=== PATIENT | female | born 1935 | race Caucasian/White ===

== ENCOUNTER 2017-09-01 02:39 | Inpatient (IN) | payer MEDICARE, OTHER ==
[2017-09-01] MEDS ORDERED: BISACODYL (EC) 5 MG TAB PO (03:30)
[2017-09-01] MEDS ORDERED: NITROGLYCERIN (SL) 0.4 MG TAB SL (03:30)
[2017-09-01] MEDS ORDERED: NACL 0.9% 3 ML SYG IV (03:30)
[2017-09-01] MEDS ORDERED: DOCUSATE SODIUM 100 MG CAP PO (03:30)
[2017-09-01] MEDS ORDERED: ACETAMINOPHEN 325 MG TAB PO (03:30)
[2017-09-01] MEDS ORDERED: ONDANSETRON 4 MG INJ IV (03:30)
[2017-09-01 03:50] LABS: ADD MAN DIFF? NO
[2017-09-01 04:22] LABS: ALANINE AMINOTRANSFERASE 12 IU/L (13-69); ALBUMIN 3.8 g/dl (3.3-4.9); ALBUMIN/GLOBULIN RATIO 0.88; ALKALINE PHOSPHATASE 69 IU/L (42-121); ANION GAP 14 (8-16); ASPARTATE AMINO TRANSFERASE 23 IU/L (15-46); BILIRUBIN,INDIRECT 0.3 mg/dl (0-1.1); BILIRUBIN,TOTAL 0.3 mg/dl (0.2-1.3); BLOOD UREA NITROGEN 27 mg/dl (7-20); CALCIUM 8.6 mg/dl (8.4-10.2); CARBON DIOXIDE 21 mmol/L (21-31); CHLORIDE 112 mmol/L (97-110); CREATININE 1.27 mg/dl (0.44-1.00); GLUCOSE 94 mg/dl (70-220); MAGNESIUM 1.7 mg/dl (1.7-2.5); SODIUM 143 mmol/L (135-144); TOTAL PROTEIN 8.1 g/dl (6.1-8.1)
[2017-09-01 04:24] LABS: BASOPHILS % 0.5 % (0.0-2.0); EOSINOPHILS # 0.2 10^3/ul (0.0-0.5); EOSINOPHILS % 4.1 % (0.0-7.0); HEMATOCRIT 35.7 % (37.0-47.0); HEMOGLOBIN 11.7 g/dl (12.0-16.0); LYMPHOCYTES # 1.1 10^3/ul (0.8-2.9); LYMPHOCYTES % 19.8 % (15.0-51.0); MEAN CORPUSCULAR HEMOGLOBIN 30.4 pg (29.0-33.0); MEAN CORPUSCULAR HGB CONC 32.8 g/dl (32.0-37.0); MEAN CORPUSCULAR VOLUME 92.7 fl (82.0-101.0); MEAN PLATELET VOLUME 10.3 fl (7.4-10.4); MONOCYTE # 0.7 10^3/ul (0.3-0.9); MONOCYTES % 12.6 % (0.0-11.0); NEUTROPHIL # 3.5 10^3/ul (1.6-7.5); NEUTROPHILS % 62.8 % (39.0-77.0); PLATELET COUNT 210 10^3/UL (140-415); RED BLOOD COUNT 3.85 10^6/ul (4.20-5.40); RED CELL DISTRIBUTION WIDTH 13.9 % (11.5-14.5)
[2017-09-01 04:24] LABS: WHITE BLOOD COUNT 5.6 10^3/ul (4.8-10.8)
[2017-09-01 04:33] LABS: B-TYPE NATRIURETIC PEPTIDE 1500 PG/ML (0-450)
[2017-09-01] MEDS: FUROSEMIDE 20 MG INJ IV ×2 (06:23→17:39)
[2017-09-01] MEDS: HEPARIN 5,000 UNIT/0.5 ML VIAL SC ×3 (06:27→22:08)
[2017-09-01 07:39] LABS: SODIUM,URINE RANDOM 147 mmol/L (30-90)
[2017-09-01 07:43] LABS: ADD UMIC YES; UR ASCORBIC ACID NEGATIVE (NEGATIVE); UR BACTERIA MODERATE /HPF (NONE SEEN); UR BILIRUBIN (Dip) NEGATIVE (NEGATIVE); UR BLOOD (Dip) NEGATIVE (NEGATIVE); UR CLARITY SLIGHTLY CLOUDY (CLEAR); UR COLOR STRAW (YELLOW); UR GLUCOSE (Dip) NEGATIVE (NEGATIVE); UR KETONES (Dip) NEGATIVE (NEGATIVE); UR LEUKOCYTE ESTERASE (Dip) 1+ Leu/ul (NEGATIVE); UR NITRITE (Dip) NEGATIVE (NEGATIVE); UR RBC 1 /HPF (0-5); UR SPECIFIC GRAVITY (Dip) 1.009 (1.003-1.030); UR TOTAL PROTEIN (Dip) NEGATIVE (NEGATIVE); UR UROBILINOGEN (Dip) NEGATIVE (NEGATIVE); UR WBC 70 /HPF (0-5)
[2017-09-01] MEDS: ASPIRIN 81 MG TAB PO (08:13)
[2017-09-01] MEDS: DICLOFENAC SODIUM 1% GEL 100 GM TUBE TP ×3 (08:13→21:17)
[2017-09-01] MEDS: ENALAPRIL 20 MG TAB PO (08:14)
[2017-09-01 08:50] LABS: FREE T3 3.24 pg/ml (2.77-5.27); FREE T4 (FREE THYROXINE) 1.27 ng/dl (0.85-1.93)
[2017-09-01 09:34] LABS: OSMOLALITY,URINE 424 mOsm/kg (250-1200)
[2017-09-01 09:35] LABS: OSMOLALITY 299 mOsm/kg (280-295)
[2017-09-01] MEDS: CEFTRIAXONE 1 GM/50 ML (PMX) 50 ML IVPB (11:24)
[2017-09-01] MEDS: AMLODIPINE 5 MG TAB PO (12:13)
[2017-09-01] MEDS ORDERED: hydrALAzine 20 MG INJ IV (20:30)
[2017-09-01] MEDS: DONEPEZIL 10 MG TAB PO (21:16)
[2017-09-01] MEDS: GABAPENTIN 100 MG CAP PO (21:16)
[2017-09-01] MEDS: ATORVASTATIN 10 MG TAB PO (21:16)
[2017-09-02] MEDS: FUROSEMIDE 20 MG INJ IV (06:49)
[2017-09-02] MEDS: HEPARIN 5,000 UNIT/0.5 ML VIAL SC ×2 (06:55→14:00)
[2017-09-02] MEDS: AMLODIPINE 5 MG TAB PO (08:12)
[2017-09-02] MEDS: ASPIRIN 81 MG TAB PO (08:12)
[2017-09-02] MEDS: DICLOFENAC SODIUM 1% GEL 100 GM TUBE TP ×2 (08:12→15:09)
[2017-09-02 08:17] LABS: CHOL/HDL RATIO 3.3 RATIO; HDL CHOLESTEROL 40 mg/dl (33-92); LDL CHOLESTEROL,CALCULATED 63 mg/dl; TRIGLYCERIDES 155 mg/dl (0-149)
[2017-09-02 08:17] LABS: CHOLESTEROL 134 mg/dl (100-200)
== END 2017-09-02 15:30 | disposition home or self-care (01) | DRG 291 ==
LOC: TEL 02:39
PROVIDERS: Internal Medicine
DX: I13.0 Hypertensive heart and chronic kidney disease with heart failure and stage 1 through stage 4 chronic kidney disease, or unspecified chronic kidney disease (principal); I50.41 Acute combined systolic (congestive) and diastolic (congestive) heart failure; N39.0 Urinary tract infection, site not specified; N17.9 Acute kidney failure, unspecified; E11.9 Type 2 diabetes mellitus without complications; N18.9 Chronic kidney disease, unspecified; E11.22 Type 2 diabetes mellitus with diabetic chronic kidney disease; F03.90 Unspecified dementia, unspecified severity, without behavioral disturbance, psychotic disturbance, mood disturbance, and anxiety; E78.5 Hyperlipidemia, unspecified
CPT/HCPCS: 71045; 80053; 80061; 81001; 83036; 83735; 83880; 83930; 83935; 84300; 84439; 84443; 84481; 85025; 87086; 93306

== ENCOUNTER 2017-09-21 17:17 | Inpatient (IN) | payer MEDICARE, OTHER ==
[2017-09-21] MEDS ORDERED: MAGNESIUM HYDROXIDE 30ML CUP PO (19:00)
[2017-09-21] MEDS ORDERED: ONDANSETRON 4 MG INJ IV (19:00)
[2017-09-21] MEDS ORDERED: hydrALAzine 20 MG INJ IV (19:00)
[2017-09-21] MEDS ORDERED: ALBUTEROL/IPRATROPIUM (NEB) 3 ML AMP HHN (19:00)
[2017-09-21] MEDS ORDERED: NA PHOSPHATE/BIPHOS 133 ML ENEMA PR (19:00)
[2017-09-21] MEDS ORDERED: HYDROCODONE/APAP (5/325) TAB PO (19:00)
[2017-09-21] MEDS ORDERED: NACL 0.9% 3 ML SYG IV (19:00)
[2017-09-21] MEDS ORDERED: NITROGLYCERIN (SL) 0.4 MG TAB SL (19:00)
[2017-09-21] MEDS ORDERED: LORAZEPAM 2 MG INJ IV (19:00)
[2017-09-21] MEDS ORDERED: morphine 2 MG INJ IV (19:00)
[2017-09-21] MEDS ORDERED: DOCUSATE SODIUM 100 MG CAP PO (19:00)
[2017-09-21 20:15] LABS: FREE T4 (FREE THYROXINE) 1.23 ng/dl (0.85-1.93)
[2017-09-21] MEDS: SOD CHLORIDE 0.45% 1,000 ML IV (21:51)
[2017-09-21] MEDS: CEFTRIAXONE 1 GM/50 ML (PMX) 50 ML IVPB (22:02)
[2017-09-21] MEDS: GABAPENTIN 100 MG CAP PO (22:03)
[2017-09-21] MEDS: CALCIUM/VITAMIN D (500/200) TAB PO (22:03)
[2017-09-21] MEDS: HEPARIN 5,000 UNIT/0.5 ML VIAL SC (22:09)
[2017-09-21] MEDS: DICLOFENAC SODIUM 1% GEL 100 GM TUBE TP (23:00)
[2017-09-22] MEDS: ACETAMINOPHEN 325 MG TAB PO ×2 (00:50→17:45)
[2017-09-22] MEDS: PANTOPRAZOLE (EC) 40 MG TAB PO (06:56)
[2017-09-22 08:43] LABS: ADD MAN DIFF? NO
[2017-09-22 08:45] LABS: BASOPHILS % 0.4 % (0.0-2.0); EOSINOPHILS # 0.1 10^3/ul (0.0-0.5); EOSINOPHILS % 1.1 % (0.0-7.0); HEMATOCRIT 34.6 % (37.0-47.0); LYMPHOCYTES # 0.7 10^3/ul (0.8-2.9); LYMPHOCYTES % 15.6 % (15.0-51.0); MEAN CORPUSCULAR HGB CONC 31.8 g/dl (32.0-37.0); MEAN CORPUSCULAR VOLUME 94.3 fl (82.0-101.0); MEAN PLATELET VOLUME 10.1 fl (7.4-10.4); MONOCYTE # 0.6 10^3/ul (0.3-0.9); MONOCYTES % 12.9 % (0.0-11.0); NEUTROPHIL # 3.3 10^3/ul (1.6-7.5); NEUTROPHILS % 69.8 % (39.0-77.0); PLATELET COUNT 134 10^3/UL (140-415); RED BLOOD COUNT 3.67 10^6/ul (4.20-5.40); RED CELL DISTRIBUTION WIDTH 12.9 % (11.5-14.5)
[2017-09-22 08:45] LABS: WHITE BLOOD COUNT 4.7 10^3/ul (4.8-10.8)
[2017-09-22] MEDS: HEPARIN 5,000 UNIT/0.5 ML VIAL SC ×2 (08:45→20:44)
[2017-09-22] MEDS: DICLOFENAC SODIUM 1% GEL 100 GM TUBE TP ×3 (08:46→20:48)
[2017-09-22] MEDS: PRAVASTATIN 20 MG TAB PO (08:47)
[2017-09-22] MEDS: AMLODIPINE 10 MG TAB PO (08:47)
[2017-09-22] MEDS: DOCUSATE SODIUM 100 MG CAP PO (08:48)
[2017-09-22] MEDS: FERROUS SULFATE (EC) 325 MG TAB PO (08:48)
[2017-09-22] MEDS: ASPIRIN 81 MG TAB PO (08:48)
[2017-09-22] MEDS: FUROSEMIDE 20 MG TAB PO (08:48)
[2017-09-22] MEDS: CALCIUM/VITAMIN D (500/200) TAB PO ×3 (08:49→20:40)
[2017-09-22] MEDS: SOD CHLORIDE 0.45% 1,000 ML IV ×2 (08:55→20:48)
[2017-09-22 09:07] LABS: ANION GAP 16 (8-16); BLOOD UREA NITROGEN 22 mg/dl (7-20); CALCIUM 8.1 mg/dl (8.4-10.2); CHOLESTEROL 117 mg/dl (100-200); GLUCOSE 74 mg/dl (70-220); HDL CHOLESTEROL 38 mg/dl (33-92); LDL CHOLESTEROL,CALCULATED 53 mg/dl; PHOSPHORUS 4.1 mg/dl (2.5-4.9)
[2017-09-22 09:08] LABS: CARBON DIOXIDE 21 mmol/L (21-31); CHLORIDE 107 mmol/L (97-110); CREATININE 0.98 mg/dl (0.44-1.00); POTASSIUM 4.1 mmol/L (3.5-5.1); SODIUM 140 mmol/L (135-144); TRIGLYCERIDES 131 mg/dl (0-149)
[2017-09-22] MEDS: HYDROCORTISONE 1% 28 GM CR TOP (10:00)
[2017-09-22] MEDS: GABAPENTIN 100 MG CAP PO (20:40)
[2017-09-22] MEDS: CEFTRIAXONE 1 GM/50 ML (PMX) 50 ML IVPB (20:41)
[2017-09-23] MEDS: PANTOPRAZOLE (EC) 40 MG TAB PO (05:41)
[2017-09-23 06:32] LABS: ADD MAN DIFF? NO
[2017-09-23 06:38] LABS: WHITE BLOOD COUNT 4.5 10^3/ul (4.8-10.8)
[2017-09-23 06:38] LABS: BASOPHILS % 0.9 % (0.0-2.0); EOSINOPHILS # 0.3 10^3/ul (0.0-0.5); EOSINOPHILS % 5.5 % (0.0-7.0); HEMATOCRIT 33.9 % (37.0-47.0); LYMPHOCYTES % 22.2 % (15.0-51.0); MEAN CORPUSCULAR HEMOGLOBIN 29.8 pg (29.0-33.0); MEAN CORPUSCULAR HGB CONC 32.4 g/dl (32.0-37.0); MEAN CORPUSCULAR VOLUME 91.9 fl (82.0-101.0); MEAN PLATELET VOLUME 10.4 fl (7.4-10.4); MONOCYTE # 0.9 10^3/ul (0.3-0.9); MONOCYTES % 19.5 % (0.0-11.0); NEUTROPHIL # 2.3 10^3/ul (1.6-7.5); NEUTROPHILS % 51.7 % (39.0-77.0); PLATELET COUNT 150 10^3/UL (140-415); RED BLOOD COUNT 3.69 10^6/ul (4.20-5.40); RED CELL DISTRIBUTION WIDTH 12.6 % (11.5-14.5)
[2017-09-23 07:06] LABS: ALANINE AMINOTRANSFERASE 25 IU/L (13-69); ALBUMIN 3.5 g/dl (3.3-4.9); ALBUMIN/GLOBULIN RATIO 0.89; ALKALINE PHOSPHATASE 66 IU/L (42-121); ANION GAP 15 (8-16); ASPARTATE AMINO TRANSFERASE 27 IU/L (15-46); BILIRUBIN,INDIRECT 0.1 mg/dl (0-1.1); BILIRUBIN,TOTAL 0.1 mg/dl (0.2-1.3); BLOOD UREA NITROGEN 19 mg/dl (7-20); CALCIUM 8.5 mg/dl (8.4-10.2); CARBON DIOXIDE 24 mmol/L (21-31); CHLORIDE 106 mmol/L (97-110); CREATININE 1.01 mg/dl (0.44-1.00); GLUCOSE 89 mg/dl (70-220); MAGNESIUM 1.9 mg/dl (1.7-2.5); PHOSPHORUS 3.7 mg/dl (2.5-4.9); SODIUM 141 mmol/L (135-144); TOTAL PROTEIN 7.4 g/dl (6.1-8.1)
[2017-09-23 07:08] LABS: TROPONIN-I 0.042 ng/ml (0.000-0.120)
[2017-09-23 07:15] LABS: INR 1.03; PROTIME 13.6 Sec (11.9-14.9); PT RATIO 1.1
[2017-09-23 07:16] LABS: PARTIAL THROMBOPLASTIN TIME 34.6 Sec (25.0-35.0)
[2017-09-23 07:27] LABS: TRIIODOTHYRONINE 0.87 ng/ml (0.97-1.69)
[2017-09-23] MEDS: HEPARIN 5,000 UNIT/0.5 ML VIAL SC ×2 (08:38→20:36)
[2017-09-23] MEDS: FERROUS SULFATE (EC) 325 MG TAB PO (08:39)
[2017-09-23] MEDS: PRAVASTATIN 20 MG TAB PO (08:40)
[2017-09-23] MEDS: ASPIRIN 81 MG TAB PO (08:40)
[2017-09-23] MEDS: CALCIUM/VITAMIN D (500/200) TAB PO ×3 (08:40→20:34)
[2017-09-23] MEDS: DOCUSATE SODIUM 100 MG CAP PO (08:40)
[2017-09-23] MEDS: DICLOFENAC SODIUM 1% GEL 100 GM TUBE TP ×3 (08:41→20:35)
[2017-09-23] MEDS: AMLODIPINE 10 MG TAB PO (08:41)
[2017-09-23] MEDS: HYDROCORTISONE 1% 28 GM CR TOP (08:42)
[2017-09-23] MEDS: LOSARTAN 25 MG TAB PO (17:43)
[2017-09-23] MEDS ORDERED: BARIUM SULF 2% 450 ML BTL (BERRY SMOOTHIE) PO (18:30)
[2017-09-23] MEDS: GABAPENTIN 100 MG CAP PO (20:34)
[2017-09-23] MEDS: CEFTRIAXONE 2 GM/NS 50 ML IVPB (20:44)
[2017-09-23] MEDS ORDERED: CEFTRIAXONE 1 GM/50 ML (PMX) 50 ML IVPB (21:00)
[2017-09-24] MEDS: PANTOPRAZOLE (EC) 40 MG TAB PO (05:53)
[2017-09-24] MEDS: LEVOTHYROXINE 25 MCG TAB PO (06:01)
[2017-09-24 06:45] LABS: ADD MAN DIFF? NO
[2017-09-24 06:53] LABS: BASOPHILS % 0.8 % (0.0-2.0); EOSINOPHILS # 0.3 10^3/ul (0.0-0.5); EOSINOPHILS % 5.7 % (0.0-7.0); HEMOGLOBIN 11.4 g/dl (12.0-16.0); LYMPHOCYTES # 1.3 10^3/ul (0.8-2.9); LYMPHOCYTES % 26.1 % (15.0-51.0); MEAN CORPUSCULAR HEMOGLOBIN 29.9 pg (29.0-33.0); MEAN CORPUSCULAR HGB CONC 32.6 g/dl (32.0-37.0); MEAN CORPUSCULAR VOLUME 91.9 fl (82.0-101.0); MEAN PLATELET VOLUME 10.6 fl (7.4-10.4); MONOCYTE # 0.7 10^3/ul (0.3-0.9); MONOCYTES % 14.7 % (0.0-11.0); NEUTROPHIL # 2.6 10^3/ul (1.6-7.5); NEUTROPHILS % 52.5 % (39.0-77.0); PLATELET COUNT 179 10^3/UL (140-415); RED BLOOD COUNT 3.81 10^6/ul (4.20-5.40); RED CELL DISTRIBUTION WIDTH 12.4 % (11.5-14.5)
[2017-09-24 07:21] LABS: MAGNESIUM 1.8 mg/dl (1.7-2.5)
[2017-09-24 07:21] LABS: PHOSPHORUS 4.3 mg/dl (2.5-4.9)
[2017-09-24 07:49] LABS: ALANINE AMINOTRANSFERASE 23 IU/L (13-69); ALBUMIN 3.5 g/dl (3.3-4.9); ALBUMIN/GLOBULIN RATIO 0.85; ALKALINE PHOSPHATASE 71 IU/L (42-121); ANION GAP 12 (8-16); ASPARTATE AMINO TRANSFERASE 29 IU/L (15-46); BILIRUBIN,INDIRECT 0.2 mg/dl (0-1.1); BILIRUBIN,TOTAL 0.2 mg/dl (0.2-1.3); BLOOD UREA NITROGEN 20 mg/dl (7-20); CALCIUM 8.6 mg/dl (8.4-10.2); CARBON DIOXIDE 25 mmol/L (21-31); CHLORIDE 106 mmol/L (97-110); GLUCOSE 95 mg/dl (70-220); POTASSIUM 4.3 mmol/L (3.5-5.1); SODIUM 139 mmol/L (135-144); TOTAL PROTEIN 7.6 g/dl (6.1-8.1)
[2017-09-24] MEDS: PRAVASTATIN 20 MG TAB PO (08:32)
[2017-09-24] MEDS: DOCUSATE SODIUM 100 MG CAP PO (08:32)
[2017-09-24] MEDS: LOSARTAN 25 MG TAB PO (08:33)
[2017-09-24] MEDS: CALCIUM/VITAMIN D (500/200) TAB PO ×2 (08:34→12:50)
[2017-09-24] MEDS: AMLODIPINE 10 MG TAB PO (08:34)
[2017-09-24] MEDS: FERROUS SULFATE (EC) 325 MG TAB PO (08:34)
[2017-09-24] MEDS: ASPIRIN 81 MG TAB PO (08:34)
[2017-09-24] MEDS: HYDROCORTISONE 1% 28 GM CR TOP (08:35)
[2017-09-24] MEDS: DICLOFENAC SODIUM 1% GEL 100 GM TUBE TP ×2 (08:35→12:50)
[2017-09-24] MEDS: HEPARIN 5,000 UNIT/0.5 ML VIAL SC (08:38)
[2017-09-24] MEDS: BARIUM SULF 2% 450 ML BTL (BERRY SMOOTHIE) PO (10:44)
[2017-09-24] MEDS ORDERED: morphine LIQ (10 MG/5 ML) CUP PO (15:00)
[2017-09-25] MEDS ORDERED: LEVOFLOXACIN 500 MG TAB PO (06:00)
[2017-09-25] MEDS ORDERED: ASPIRIN (EC) 325 MG TAB PO (09:00)
== END 2017-09-24 16:45 | disposition home health service (06) | DRG 690 ==
LOC: PP2 17:17 → MS4 19:00
PROVIDERS: Hospitalist
DX: N10 Acute pyelonephritis (principal); E11.9 Type 2 diabetes mellitus without complications; I48.2 Chronic atrial fibrillation; J20.9 Acute bronchitis, unspecified; I10 Essential (primary) hypertension; E78.5 Hyperlipidemia, unspecified; F03.90 Unspecified dementia, unspecified severity, without behavioral disturbance, psychotic disturbance, mood disturbance, and anxiety; K21.9 Gastro-esophageal reflux disease without esophagitis; Z91.14 Patient's other noncompliance with medication regimen; Z91.11 Patient's noncompliance with dietary regimen; Z90.49 Acquired absence of other specified parts of digestive tract; Z79.82 Long term (current) use of aspirin; Z79.84 Long term (current) use of oral hypoglycemic drugs
CPT/HCPCS: 71045; 74176; 80048; 80053; 80061; 83036; 83735; 84100; 84439; 84443; 84480; 84484; 85025; 85610; 85730; 87086; 92526; 92610; 93005; 97110; 97116; 97162; 97165; 97530

== ENCOUNTER 2017-10-17 10:46 | Inpatient (IN) | payer MEDICARE, OTHER ==
[2017-10-17] MEDS: SODIUM CHLORIDE 0.9% 1L BAG IV* (12:01)
[2017-10-17] MEDS: ACETAMINOPHEN 325 MG TAB PO (12:04)
[2017-10-17] MEDS: IBUPROFEN 800 MG TAB PO (12:04)
[2017-10-17 12:09] LABS: ADD MAN DIFF? NO
[2017-10-17 12:14] LABS: WHITE BLOOD COUNT 12.5 10^3/ul (4.8-10.8)
[2017-10-17 12:14] LABS: BASOPHILS % 0.2 % (0.0-2.0); EOSINOPHILS # 0.1 10^3/ul (0.0-0.5); EOSINOPHILS % 0.6 % (0.0-7.0); HEMATOCRIT 36.8 % (37.0-47.0); HEMOGLOBIN 11.9 g/dl (12.0-16.0); LYMPHOCYTES # 0.8 10^3/ul (0.8-2.9); LYMPHOCYTES % 6.7 % (15.0-51.0); MEAN CORPUSCULAR HEMOGLOBIN 29.9 pg (29.0-33.0); MEAN CORPUSCULAR HGB CONC 32.3 g/dl (32.0-37.0); MEAN CORPUSCULAR VOLUME 92.5 fl (82.0-101.0); MONOCYTE # 0.8 10^3/ul (0.3-0.9); MONOCYTES % 6.5 % (0.0-11.0); NEUTROPHIL # 10.7 10^3/ul (1.6-7.5); NEUTROPHILS % 85.7 % (39.0-77.0); PLATELET COUNT 167 10^3/UL (140-415); RED BLOOD COUNT 3.98 10^6/ul (4.20-5.40); RED CELL DISTRIBUTION WIDTH 13.6 % (11.5-14.5)
[2017-10-17 12:18] LABS: ADD UMIC YES; UR ASCORBIC ACID 20 mg/dL (NEGATIVE); UR BILIRUBIN (Dip) NEGATIVE (NEGATIVE); UR BLOOD (Dip) NEGATIVE (NEGATIVE); UR CLARITY SLIGHTLY CLOUDY (CLEAR); UR COLOR YELLOW (YELLOW); UR GLUCOSE (Dip) NEGATIVE (NEGATIVE); UR KETONES (Dip) NEGATIVE (NEGATIVE); UR LEUKOCYTE ESTERASE (Dip) 1+ Leu/ul (NEGATIVE); UR MUCUS FEW /HPF (NONE SEEN); UR NITRITE (Dip) NEGATIVE (NEGATIVE); UR RBC 0 /HPF (0-5); UR SPECIFIC GRAVITY (Dip) 1.025 (1.003-1.030); UR SQUAMOUS EPITHELIAL CELL FEW /HPF (FEW); UR TOTAL PROTEIN (Dip) NEGATIVE (NEGATIVE); UR UROBILINOGEN (Dip) NEGATIVE (NEGATIVE); UR WBC 3 /HPF (0-5)
[2017-10-17] MEDS: CEFEPIME 2GM/50 ML (PMX) 50 ML IVPB (12:20)
[2017-10-17 12:36] LABS: ALANINE AMINOTRANSFERASE 17 IU/L (13-69); ALBUMIN 3.7 g/dl (3.3-4.9); ALBUMIN/GLOBULIN RATIO 0.88; ALKALINE PHOSPHATASE 61 IU/L (42-121); AMYLASE 70 U/L (11-123); ANION GAP 12 (8-16); ASPARTATE AMINO TRANSFERASE 26 IU/L (15-46); BILIRUBIN,INDIRECT 0.5 mg/dl (0-1.1); BILIRUBIN,TOTAL 0.5 mg/dl (0.2-1.3); BLOOD UREA NITROGEN 27 mg/dl (7-20); CALCIUM 8.9 mg/dl (8.4-10.2); CARBON DIOXIDE 22 mmol/L (21-31); CHLORIDE 108 mmol/L (97-110); GLUCOSE 169 mg/dl (70-220); LIPASE 102 U/L (23-300); SODIUM 138 mmol/L (135-144); TOTAL PROTEIN 7.9 g/dl (6.1-8.1)
[2017-10-17 12:47] LABS: TROPONIN-I < 0.010 ng/ml (0.000-0.120)
[2017-10-17] MEDS: ALBUTEROL 0.083% (NEB) 2.5 MG/3 ML AMP NEB ×2 (12:47→14:42)
[2017-10-17] MEDS: IPRATROPIUM (NEB) 0.5 MG/2.5 ML AMP NEB ×2 (12:47→14:42)
[2017-10-17] MEDS: VANCOMYCIN 1 GM (PMX) 250 ML IVPB (13:01)
[2017-10-17 13:36] LABS: B-TYPE NATRIURETIC PEPTIDE 5620 PG/ML (0-450)
[2017-10-17] MEDS: SOD CHLORIDE 0.9% 100 ML (14:05)
[2017-10-17] MEDS: IODIXANOL LOCM 100 ML BTL (14:05)
[2017-10-17] MEDS ORDERED: ACETAMINOPHEN 325 MG TAB PO ×2 (14:30→15:00)
[2017-10-17] MEDS ORDERED: ONDANSETRON 4 MG INJ IV ×2 (14:30→15:00)
[2017-10-17] MEDS ORDERED: NACL 0.9% 3 ML SYG IV (15:00)
[2017-10-17] MEDS ORDERED: HYDROCODONE/APAP (5/325) TAB PO (15:00)
[2017-10-17] MEDS ORDERED: CEFTRIAXONE 1 GM/50 ML (PMX) 50 ML IVPB (15:30)
[2017-10-17 15:38] LABS: LACTIC ACID 0.7 mmol/L (0.5-2.0)
[2017-10-17] MEDS: FUROSEMIDE 40 MG INJ IV (15:41)
[2017-10-17 15:43] LABS: INR 1.14; PROTIME 14.8 Sec (11.9-14.9); PT RATIO 1.2
[2017-10-17] MEDS ORDERED: VANCOMYCIN IV PER PHARMACY XX (16:00)
[2017-10-17] MEDS ORDERED: GLUCOSE GEL 15 GRAM TUBE PO ×2 (16:00)
[2017-10-17] MEDS ORDERED: GLUCOSE GEL 15 GRAM TUBE BUCCAL (16:00)
[2017-10-17] MEDS ORDERED: GLUCAGON 1 MG INJ IM (16:00)
[2017-10-17] MEDS ORDERED: DEXTROSE 50% 50 ML SYRINGE IV ×2 (16:00)
[2017-10-17] MEDS: INSULIN ASPART [NOVOLOG] 3 ML PEN SC ×3 (17:55→20:54)
[2017-10-17] MEDS ORDERED: ATROPINE 1 MG/10 ML SYRINGE IV (18:00)
[2017-10-17] MEDS: FUROSEMIDE 20 MG INJ IV (18:30)
[2017-10-17 19:16] LABS: LACTIC ACID 1.2 mmol/L (0.5-2.0)
[2017-10-17] MEDS: INSULIN GLARGINE [LANTus] (100 UNITS/ML) SYG SC (20:00)
[2017-10-17] MEDS: IPRATROPIUM (NEB) 0.5 MG/2.5 ML AMP HHN (20:15)
[2017-10-17] MEDS: GABAPENTIN 100 MG CAP PO (20:54)
[2017-10-17] MEDS: CEFEPIME 1GM/50 ML (PMX) 50 ML IVPB (20:54)
[2017-10-17] MEDS: HEPARIN 5,000 UNIT/0.5 ML VIAL SC (21:06)
[2017-10-18] MEDS: PANTOPRAZOLE (EC) 40 MG TAB PO (06:11)
[2017-10-18] MEDS: LEVOTHYROXINE 25 MCG TAB PO (06:11)
[2017-10-18] MEDS: FUROSEMIDE 20 MG INJ IV (06:11)
[2017-10-18 06:38] LABS: ADD MAN DIFF? NO
[2017-10-18 06:42] LABS: WHITE BLOOD COUNT 7.3 10^3/ul (4.8-10.8)
[2017-10-18 06:42] LABS: BASOPHILS % 0.3 % (0.0-2.0); EOSINOPHILS # 0.3 10^3/ul (0.0-0.5); EOSINOPHILS % 4.1 % (0.0-7.0); HEMATOCRIT 31.1 % (37.0-47.0); HEMOGLOBIN 9.8 g/dl (12.0-16.0); LYMPHOCYTES # 1.1 10^3/ul (0.8-2.9); LYMPHOCYTES % 14.8 % (15.0-51.0); MEAN CORPUSCULAR HEMOGLOBIN 29.4 pg (29.0-33.0); MEAN CORPUSCULAR HGB CONC 31.5 g/dl (32.0-37.0); MEAN CORPUSCULAR VOLUME 93.4 fl (82.0-101.0); MEAN PLATELET VOLUME 10.2 fl (7.4-10.4); MONOCYTE # 0.6 10^3/ul (0.3-0.9); MONOCYTES % 8.3 % (0.0-11.0); NEUTROPHIL # 5.3 10^3/ul (1.6-7.5); NEUTROPHILS % 72.2 % (39.0-77.0); PLATELET COUNT 171 10^3/UL (140-415); RED BLOOD COUNT 3.33 10^6/ul (4.20-5.40); RED CELL DISTRIBUTION WIDTH 13.8 % (11.5-14.5)
[2017-10-18 07:00] LABS: INR 1.09; PROTIME 14.2 Sec (11.9-14.9); PT RATIO 1.1
[2017-10-18 07:01] LABS: PARTIAL THROMBOPLASTIN TIME 36.5 Sec (25.0-35.0)
[2017-10-18 07:05] LABS: ALANINE AMINOTRANSFERASE 21 IU/L (13-69); ALBUMIN 3.3 g/dl (3.3-4.9); ALBUMIN/GLOBULIN RATIO 0.86; ALKALINE PHOSPHATASE 54 IU/L (42-121); ANION GAP 11 (8-16); ASPARTATE AMINO TRANSFERASE 24 IU/L (15-46); BILIRUBIN,INDIRECT 0.5 mg/dl (0-1.1); BILIRUBIN,TOTAL 0.5 mg/dl (0.2-1.3); BLOOD UREA NITROGEN 28 mg/dl (7-20); CALCIUM 8.2 mg/dl (8.4-10.2); CARBON DIOXIDE 23 mmol/L (21-31); CHLORIDE 110 mmol/L (97-110); CREATININE 1.51 mg/dl (0.44-1.00); GLUCOSE 83 mg/dl (70-220); POTASSIUM 3.5 mmol/L (3.5-5.1); SODIUM 140 mmol/L (135-144); TOTAL PROTEIN 7.1 g/dl (6.1-8.1)
[2017-10-18 07:06] LABS: MAGNESIUM 1.7 mg/dl (1.7-2.5)
[2017-10-18 07:06] LABS: PHOSPHORUS 5.7 mg/dl (2.5-4.9)
[2017-10-18 07:32] LABS: CHOL/HDL RATIO 2.4 RATIO; HDL CHOLESTEROL 43 mg/dl (33-92); LDL CHOLESTEROL,CALCULATED 40 mg/dl; TRIGLYCERIDES 108 mg/dl (0-149)
[2017-10-18 07:32] LABS: CHOLESTEROL 105 mg/dl (100-200)
[2017-10-18 07:33] LABS: CREATINE KINASE < 20 IU/L (23-200)
[2017-10-18 07:43] LABS: TROPONIN-I 0.013 ng/ml (0.000-0.120)
[2017-10-18] MEDS: INSULIN ASPART [NOVOLOG] 3 ML PEN SC ×7 (07:55→20:48)
[2017-10-18] MEDS: POTASSIUM CHLORIDE 20 MEQ POWDER FOR ORAL SOLN PO (08:44)
[2017-10-18] MEDS: DOCUSATE SODIUM 100 MG CAP PO (08:44)
[2017-10-18] MEDS: FERROUS SULFATE (EC) 325 MG TAB PO (08:45)
[2017-10-18] MEDS: CEFEPIME 1GM/50 ML (PMX) 50 ML IVPB ×2 (08:45→20:47)
[2017-10-18] MEDS: ASPIRIN (EC) 81 MG TAB PO (08:45)
[2017-10-18] MEDS: AMLODIPINE 10 MG TAB PO (08:49)
[2017-10-18] MEDS: HEPARIN 5,000 UNIT/0.5 ML VIAL SC ×2 (08:54→21:21)
[2017-10-18] MEDS: IPRATROPIUM (NEB) 0.5 MG/2.5 ML AMP HHN ×3 (09:07→21:17)
[2017-10-18] MEDS ORDERED: VANCOMYCIN 1 GM 250 ML IVPB (10:00)
[2017-10-18] MEDS: MAGNESIUM SULFATE 2 GM/50 ML 50 ML IVPB (10:02)
[2017-10-18] MEDS: VANCOMYCIN 750 MG in SOD CHLORIDE 0.9% 150 ML IVPB (12:11)
[2017-10-18] MEDS: FUROSEMIDE 20 MG TAB PO (17:59)
[2017-10-18] MEDS: INSULIN GLARGINE [LANTus] (100 UNITS/ML) SYG SC (20:00)
[2017-10-18] MEDS: GABAPENTIN 100 MG CAP PO (20:47)
[2017-10-18] MEDS: SOD CHLORIDE 0.9% 1,000 ML IV (23:00)
[2017-10-19] MEDS: FUROSEMIDE 20 MG TAB PO (06:02)
[2017-10-19] MEDS: LEVOTHYROXINE 25 MCG TAB PO (06:02)
[2017-10-19] MEDS: PANTOPRAZOLE (EC) 40 MG TAB PO (06:02)
[2017-10-19 06:33] LABS: ADD MAN DIFF? NO
[2017-10-19 06:37] LABS: BASOPHILS % 0.7 % (0.0-2.0); EOSINOPHILS # 0.4 10^3/ul (0.0-0.5); EOSINOPHILS % 6.9 % (0.0-7.0); HEMATOCRIT 36.7 % (37.0-47.0); HEMOGLOBIN 11.6 g/dl (12.0-16.0); LYMPHOCYTES % 18.2 % (15.0-51.0); MEAN CORPUSCULAR HEMOGLOBIN 28.9 pg (29.0-33.0); MEAN CORPUSCULAR HGB CONC 31.6 g/dl (32.0-37.0); MEAN CORPUSCULAR VOLUME 91.5 fl (82.0-101.0); MONOCYTE # 0.7 10^3/ul (0.3-0.9); MONOCYTES % 12.2 % (0.0-11.0); NEUTROPHIL # 3.5 10^3/ul (1.6-7.5); NEUTROPHILS % 61.8 % (39.0-77.0); PLATELET COUNT 184 10^3/UL (140-415); RED BLOOD COUNT 4.01 10^6/ul (4.20-5.40); RED CELL DISTRIBUTION WIDTH 13.5 % (11.5-14.5)
[2017-10-19 06:37] LABS: WHITE BLOOD COUNT 5.7 10^3/ul (4.8-10.8)
[2017-10-19 07:05] LABS: ANION GAP 12 (8-16); BLOOD UREA NITROGEN 25 mg/dl (7-20); CALCIUM 8.5 mg/dl (8.4-10.2); CARBON DIOXIDE 22 mmol/L (21-31); CHLORIDE 109 mmol/L (97-110); CREATININE 1.28 mg/dl (0.44-1.00); GLUCOSE 90 mg/dl (70-220); POTASSIUM 4.4 mmol/L (3.5-5.1); SODIUM 139 mmol/L (135-144)
[2017-10-19] MEDS: INSULIN ASPART [NOVOLOG] 3 ML PEN SC ×7 (07:55→21:00)
[2017-10-19] MEDS: CEFEPIME 1GM/50 ML (PMX) 50 ML IVPB ×2 (09:00→21:05)
[2017-10-19] MEDS: HEPARIN 5,000 UNIT/0.5 ML VIAL SC ×2 (09:00→21:16)
[2017-10-19] MEDS: IPRATROPIUM (NEB) 0.5 MG/2.5 ML AMP HHN ×3 (09:36→20:20)
[2017-10-19] MEDS: FERROUS SULFATE (EC) 325 MG TAB PO (09:59)
[2017-10-19] MEDS: ASPIRIN (EC) 81 MG TAB PO (09:59)
[2017-10-19] MEDS: DOCUSATE SODIUM 100 MG CAP PO (09:59)
[2017-10-19] MEDS: AMLODIPINE 10 MG TAB PO (10:00)
[2017-10-19] MEDS: VANCOMYCIN 750 MG in SOD CHLORIDE 0.9% 150 ML IVPB (11:38)
[2017-10-19] MEDS: INSULIN GLARGINE [LANTus] (100 UNITS/ML) SYG SC (21:00)
[2017-10-19] MEDS: GABAPENTIN 100 MG CAP PO (21:05)
[2017-10-20] MEDS: PANTOPRAZOLE (EC) 40 MG TAB PO (06:22)
[2017-10-20] MEDS: LEVOTHYROXINE 25 MCG TAB PO (06:22)
[2017-10-20] MEDS: INSULIN ASPART [NOVOLOG] 3 ML PEN SC ×6 (07:55→17:55)
[2017-10-20] MEDS: IPRATROPIUM (NEB) 0.5 MG/2.5 ML AMP HHN ×2 (08:43→14:48)
[2017-10-20] MEDS: CEFEPIME 1GM/50 ML (PMX) 50 ML IVPB (09:19)
[2017-10-20] MEDS: FERROUS SULFATE (EC) 325 MG TAB PO (09:20)
[2017-10-20] MEDS: ASPIRIN (EC) 81 MG TAB PO (09:20)
[2017-10-20] MEDS: FUROSEMIDE 20 MG TAB PO (09:21)
[2017-10-20] MEDS: DOCUSATE SODIUM 100 MG CAP PO (09:22)
[2017-10-20] MEDS: AMLODIPINE 10 MG TAB PO (09:22)
[2017-10-20] MEDS: HEPARIN 5,000 UNIT/0.5 ML VIAL SC (09:32)
[2017-10-20 09:52] LABS: ADD MAN DIFF? NO
[2017-10-20 09:54] LABS: BASOPHILS % 0.7 % (0.0-2.0); EOSINOPHILS # 0.3 10^3/ul (0.0-0.5); EOSINOPHILS % 6.5 % (0.0-7.0); HEMATOCRIT 36.8 % (37.0-47.0); HEMOGLOBIN 11.7 g/dl (12.0-16.0); LYMPHOCYTES % 22.3 % (15.0-51.0); MEAN CORPUSCULAR HEMOGLOBIN 29.1 pg (29.0-33.0); MEAN CORPUSCULAR HGB CONC 31.8 g/dl (32.0-37.0); MEAN CORPUSCULAR VOLUME 91.5 fl (82.0-101.0); MONOCYTE # 0.6 10^3/ul (0.3-0.9); MONOCYTES % 12.9 % (0.0-11.0); NEUTROPHIL # 2.6 10^3/ul (1.6-7.5); NEUTROPHILS % 57.6 % (39.0-77.0); PLATELET COUNT 195 10^3/UL (140-415); RED BLOOD COUNT 4.02 10^6/ul (4.20-5.40); RED CELL DISTRIBUTION WIDTH 13.1 % (11.5-14.5)
[2017-10-20 09:54] LABS: WHITE BLOOD COUNT 4.4 10^3/ul (4.8-10.8)
[2017-10-20 10:21] LABS: ANION GAP 12 (8-16); BLOOD UREA NITROGEN 22 mg/dl (7-20); CALCIUM 8.8 mg/dl (8.4-10.2); CARBON DIOXIDE 24 mmol/L (21-31); CHLORIDE 108 mmol/L (97-110); CREATININE 1.14 mg/dl (0.44-1.00); GLUCOSE 90 mg/dl (70-220); POTASSIUM 4.1 mmol/L (3.5-5.1); SODIUM 140 mmol/L (135-144)
[2017-10-20 10:50] LABS: VANCOMYCIN,TROUGH 12.4 ug/ml (10.0-20.0)
[2017-10-20] MEDS: VANCOMYCIN 750 MG in SOD CHLORIDE 0.9% 150 ML IVPB (12:03)
[2017-10-20] MEDS: ENALAPRIL 20 MG TAB PO (16:33)
== END 2017-10-20 19:40 | disposition home health service (06) | DRG 871 ==
LOC: E/R 10:46 → TEL 16:55
DX: A41.9 Sepsis, unspecified organism (principal); I50.33 Acute on chronic diastolic (congestive) heart failure; I13.0 Hypertensive heart and chronic kidney disease with heart failure and stage 1 through stage 4 chronic kidney disease, or unspecified chronic kidney disease; I48.0 Paroxysmal atrial fibrillation; N18.9 Chronic kidney disease, unspecified; E11.22 Type 2 diabetes mellitus with diabetic chronic kidney disease; E11.40 Type 2 diabetes mellitus with diabetic neuropathy, unspecified; E78.00 Pure hypercholesterolemia, unspecified; E03.9 Hypothyroidism, unspecified; Z86.73 Personal history of transient ischemic attack (TIA), and cerebral infarction without residual deficits
CPT/HCPCS: 36415; 71045; 71275; 80048; 80053; 80061; 80202; 81001; 82150; 82550; 82553; 82962; 83036; 83605; 83690; 83735; 83880; 84100; 84439; 84443; 84484; 85025; 85610; 85730; 87040; 87086; 87400; 93005; 93970; 94640; 94664; 96374; 96375; 97116; 97162; 97530; 99291-25